=== PATIENT | female | born 1975 | race Caucasian/White ===

== ENCOUNTER 2021-03-02 09:53 | Outpatient (CLI) | payer OTHER, SELFPAY ==
--- NOTE | ~2021-03-02 | CT_ITS ---
EXAMINATION: CT chest abdomen pelvis w con DATE: 03/02/2021 10:28 INDICATION: History of gastrointestinal stromal tumor TECHNIQUE: Transaxial computed tomographic images of the chest, abdomen, and pelvis were obtained aft er the administration of 100 cc of Omnipaque 350 intravenous contrast. The dose-length product (DLP) was 386.11 mGy-cm. Automated exposure control and iterative reconstruction technique were employed. COMPARISON: 11/28/2017 FINDINGS: CHEST CT: The lungs are free of acute opacities. There is no pleural effusion or pneumothorax. No pathologicall y enlarged thoracic lymph nodes are identified. The heart size is normal. The visualized osseous stru ctures are unremarkable. ABDOMEN/PELVIS CT: There are changes of interval resection of the previously described gastric mass. No residual mass is identified. The liver, spleen, pancreas, gallbladder, and adrenal glands are normal. The kidneys are unremarkable. No pathologically enlarged abdominal or pelvic lymph nodes are identified. There is no free intraperitoneal gas or evidence of bowel obstruction. There is a moderate volume of colonic sto ol. IMPRESSION: 1. Interval surgical change in the stomach without evidence of metastatic disease. Reviewed, dictated and finalized at location A. IMPRESSION: 1. Interval surgical change in the stomach without evidence of metastatic disea se.
== END 2021-03-02 09:54 | disposition home or self-care (01) ==
LOC: ANHIMG 10:01
PROVIDERS: PCP Family Medicine; Visit Provider Student in an Organized Health Care Education/Training Program
DX: Z85.038 Personal history of other malignant neoplasm of large intestine (principal); Z98.890 Other specified postprocedural states
CPT/HCPCS: 71260; 74177; Q9967